=== PATIENT | male | born 1995 | race Caucasian/White ===

== ENCOUNTER 2017-12-08 16:36 | Inpatient (IN) | payer SELFPAY ==
--- NOTE | 2017-12-08 18:28 | ER Document Report ---
ED Medical Screen (RME) - General Chief Complaint: Knee Pain Stated Complaint: KNEE SWELLING Time Seen by Provider: 12/08/17 18:16 TRAVEL OUTSIDE OF THE [place] IN LAST 30 DAYS: No - HPI Notes: 12/08/17 18:25 Patient is a 22-year-old male no significant past medical history who presents to the ED complaining of left knee swelling, redness, purulent discharge, and left lower leg swelling 1-2 days. Patient states that he noticed the redness and swelling yesterday, and the wound began draining today. Denies any headache, fever, URI, sore throat, chest pain, palpitations, syncope , cough, shortness of breath, wheeze, dyspnea, abdominal pain, nausea/vomiting/ diarrhea, urinary retention, dysuria, hematuria, loss of control of bowel or bladder, numbness/tingling, muscle paralysis/weakness. I have treated and performed a rapid initial assessment of this patient. A comprehensive ED assessment and evaluation of the patient, analysis of test results and completion of medical decision making process will be conducted by additional ED providers. PHYSICAL EXAMINATION: GENERAL: Well-appearing, well-nourished and in no acute distress. A&Ox4. Answers questions appropriately. LUNGS: Breath sounds clear to auscultation bilaterally and equal. No wheezes rales or rhonchi. HEART: Regular rate and rhythm without murmurs, rubs, gallops. Lt knee: + erythema, fluctuance, swelling, warmth, and tenderness. + purulent discharge. Extremities: 1+ pitting edema LLE below the knee. NEUROLOGICAL: Normal speech, normal gait. PSYCH: Normal mood, normal affect. - Related Data Allergies/Adverse Reactions: No Known Allergies Allergy (Verified 12/08/17 16:37) Past Medical History - Social History Chew tobacco use (# tins/day): No Frequency of alcohol use: Social Drug Abuse: None Renal/ Medical History: Denies: Hx Peritoneal Dialysis Physical Exam - Vital signs Vitals: Temp Pulse Resp BP Pulse Ox 98.0 F 96 20 144/67 H 97 12/08/17 16:43 12/08/17 16:43 12/08/17 16:43 12/08/17 16:43 12/08/17 16:43 Course - Vital Signs Vital signs: Temp Pulse Resp BP Pulse Ox 98.0 F 96 20 144/67 H 97 12/08/17 16:43 12/08/17 16:43 12/08/17 16:43 12/08/17 16:43 12/08/17 16:43
--- NOTE | 2017-12-08 19:04 | RADIOLOGY REPORT (SQ) ---
EXAM DESCRIPTION: KNEE LEFT 4 VIEW COMPLETED DATE/TIME: 12/08/2017 6:56 pm REASON FOR STUDY: left knee erythema, swelling, abscess COMPARISON: None. NUMBER OF VIEWS: Four views. TECHNIQUE: AP, lateral, and both oblique radiographic images acquired of the left knee. LIMITATIONS: None. FINDINGS: MINERALIZATION: Normal. BONES: No acute fracture or dislocation. No worrisome bone lesions. JOINT: No effusion. SOFT TISSUES: Prepatellar soft tissue swelling. OTHER: No other significant finding. IMPRESSION: Prepatellar soft tissue swelling. No osseous abnormality. TECHNICAL DOCUMENTATION: JOB ID: [id number] [employer]- All Rights Reserved Reading location - IP/workstation name: [email or web address]
[2017-12-08 20:03] LABS: ABSOLUTE BASOPHILS # (AUTO) 0.1 10^3/uL (0.0-0.2); ABSOLUTE EOSINOPHILS # (AUTO) 0.5 10^3/uL (0.0-0.6); ABSOLUTE LYMPHOCYTES (AUTO) 2.6 10^3/uL (0.5-4.7); ABSOLUTE MONOCYTES (AUTO) 1.2 10^3/uL (0.1-1.4); ABSOLUTE NEUT (AUTO) 9.2 10^3/uL (1.7-8.2); BASOPHILS % (AUTO) 0.6 % (0-2); EOSINOPHILS % (AUTO) 3.5 % (0-6); HEMATOCRIT 48.8 % (37.9-51.0); HEMOGLOBIN 16.9 g/dL (13.5-17.0); MEAN CORPUSCULAR HEMOGLOBIN 30.6 pg (27.0-33.4); MEAN CORPUSCULAR HGB CONC 34.6 g/dL (32.0-36.0); MEAN CORPUSCULAR VOLUME 88 fl (80-97); MONOCYTES % (AUTO) 9.1 % (3-13); RED BLOOD COUNT 5.53 10^6/uL (4.35-5.55); RED CELL DISTRIBUTION WIDTH 12.5 % (11.5-14.0); SEGMENTED NEUTROPHILS % (AUTO) 67.8 % (42-78); TOTAL CELLS COUNTED % (AUTO) 100 %; WHITE BLOOD COUNT 13.6 10^3/uL (4.0-10.5)
[2017-12-08 20:27] LABS: PLATELET COUNT 340 10^3/uL (150-450)
[2017-12-08 20:40] LABS: ERYTHROCYTE SEDIMENTATION RATE 26 mm/hr (0-15)
[2017-12-08] MEDS ORDERED: KETOROLAC TROMETHAMINE INJ/PF 30 MG/1 ML SDV IV ONE (20:58)
[2017-12-08] MEDS ORDERED: MORPHINE SULFATE 10 MG/ML INJ IV PRN (20:58)
[2017-12-08] MEDS ORDERED: RINGERS SOLUTION,LACTATED 1,000 ML IV ONE (20:59)
[2017-12-08 21:18] LABS: ALANINE AMINOTRANSFERASE 28 U/L (21-72); ALBUMIN 4.4 g/dL (3.5-5.0); ALKALINE PHOSPHATASE 63 U/L (38-126); ANION GAP 12 (5-19); ASPARTATE AMINO TRANSFERASE 22 U/L (17-59); BILIRUBIN,DIRECT 0.4 mg/dL (0.0-0.4); BILIRUBIN,TOTAL 0.5 mg/dL (0.2-1.3); BLOOD UREA NITROGEN 13 mg/dL (7-20); C-REACTIVE PROTEIN 33.5 mg/L (<10.0); CALCIUM 9.6 mg/dL (8.4-10.2); CARBON DIOXIDE 28 mmol/L (22-30); CHLORIDE 102 mmol/L (98-107); GLUCOSE 93 mg/dL (75-110); POTASSIUM 4.6 mmol/L (3.6-5.0); SODIUM 141.8 mmol/L (137-145); TOTAL PROTEIN 7.4 g/dL (6.3-8.2)
--- NOTE | 2017-12-08 21:44 | RADIOLOGY REPORT (SQ) ---
CT LOWER EXTREMITY WITH IV CONTRAST EXAM DATE: 12/08/2017 20:59 HISTORY: Prepatellar tenderness. Evaluate for abscess. COMPARISON: Radiographs from earlier the same day. . TECHNIQUE: CT scan of the left knee. This exam was performed according to our departmental dose-optimization program, which includes automated exposure control, adjustment of the mA and/or kV according to patient size and/or use of iterative reconstruction technique. FINDINGS: Approximately 2.4 x 1.2 x 3.0 cm collection in the prepatellar soft tissues. Diffuse subcutaneous edema overlying the prepatellar region. No acute fracture or malalignment. Joint spaces are preserved. Fragmentation of the superolateral patella consistent with normal variant (bipartite patella). No knee joint effusion. Visualized muscles and tendons are grossly intact. No Apple's cyst. IMPRESSION: 3 cm focal collection in the prepatellar soft tissues. Differential includes prepatellar abscess, prepatellar bursitis, or prepatellar hematoma.
[2017-12-08] MEDS ORDERED: HYDROMORPHONE HCL INJ/PF 2 MG/ML AMPULE ONE (22:06)
[2017-12-08] MEDS: HYDROMORPHONE HCL INJ/PF 2 MG/ML AMPULE IV PRN (22:10)
[2017-12-08] MEDS ORDERED: VANCOMYCIN HCL INJ 1000 MG VIAL IV ONE (22:24)
[2017-12-08] MEDS ORDERED: CEFTRIAXONE INJ 1000 MG VIAL IV ONE (22:24)
--- NOTE | 2017-12-08 22:29 | ER Document Report ---
ED General - General Chief Complaint: Knee Pain Stated Complaint: KNEE SWELLING Time Seen by Provider: 12/08/17 18:16 Notes: Patient is a 22-year-old male without past medical history, current everyday smoker who presents with 36 hours of progressively worsening pain and swelling over his left patella now with extending erythema down to the level of his ankle as well as extending up along his thigh. He states that he believes the area started as a potential spider bite but never actually saw spider bite the area. He has noted purulent drainage from an opening over his patellar surface on the left. He notes a severe, throbbing, constant pain to the area. Touching the area or bending his knee worsens the pain. Nothing improves the pain. He denies any history of similar symptoms in the past. He has not seen his general doctor regarding today's concerns. He denies any fever or constitutional symptoms. TRAVEL OUTSIDE OF THE [place] IN LAST 30 DAYS: No - Related Data Allergies/Adverse Reactions: No Known Allergies Allergy (Verified 12/08/17 16:37) Past Medical History - General Information source: Patient - Social History Smoking Status: Current Every Day Smoker Cigarette use (# per day): Yes - 1 pack per day Chew tobacco use (# tins/day): No Smoking Education Provided: Yes - Smoking cessation counseling was provided for 4 minutes at the bedside Frequency of alcohol use: Social Drug Abuse: None Family History: Reviewed & Not Pertinent Patient has suicidal ideation: No Patient has homicidal ideation: No Renal/ Medical History: Denies: Hx Peritoneal Dialysis Review of Systems - Review of Systems Notes: Constitutional: Negative for fever. HENT: Negative for sore throat. Eyes: Negative for visual changes. Cardiovascular: Negative for chest pain. Respiratory: Negative for shortness of breath. Gastrointestinal: Negative for abdominal pain, vomiting or diarrhea. Genitourinary: Negative for dysuria. Musculoskeletal: Negative for back pain. Skin: Positive for rash. Neurological: Negative for headaches, weakness or numbness. 10 point ROS negative except as marked above and in HPI. Physical Exam - Vital signs Vitals: Temp Pulse Resp BP Pulse Ox 98.0 F 96 20 144/67 H 97 12/08/17 16:43 12/08/17 16:43 12/08/17 16:43 12/08/17 16:43 12/08/17 16:43 Interpretation: Normal Notes: PHYSICAL EXAMINATION: GENERAL: Appears moderately uncomfortable but in no acute distress HEAD: Atraumatic, normocephalic. EYES: Pupils equal round and reactive to light, extraocular movements intact, sclera anicteric, conjunctiva are normal. ENT: nares patent, oropharynx clear without exudates. Moist mucous membranes. NECK: Normal range of motion, supple without lymphadenopathy LUNGS: Breath sounds clear to auscultation bilaterally and equal. No wheezes rales or rhonchi. HEART: Regular rate and rhythm without murmurs ABDOMEN: Soft, nontender, normoactive bowel sounds. No guarding, no rebound. No masses appreciated. EXTREMITIES: Full flexion to 90 of the left knee actively. There is a palpable , fluctuant area over the lateral surface of the patella. No joint effusion. NEUROLOGICAL: No focal neurological deficits. Moves all extremities spontaneously and on command. PSYCH: Normal mood, normal affect. SKIN: Warm, Dry, normal turgor, there is a streaking erythema extending from the patellar surface down to the level of the ankle and also extending approximately 4 cm up the lateral thigh on the left side. Course - Re-evaluation Re-evalutation: 12/08/17 22:27 Patient presents with a prepatellar abscess on the left without evidence of a septic joint on exam with a rapidly spreading synovitis over the almost entirety of the distal lower extremity and tracking up 4 cm on the proximal aspect of the extremity above the knee. The patient is able to fully flex the knee to 90 without assistance. There is no joint effusion. CT scan of the leg does not show any evidence of an infection outside of the area that is noted on exam. An incision and drainage was performed with extraction of approximately 5 mL's of pus. The wound was then irrigated. The patient has been started on vancomycin and ceftriaxone. Given the rapid progression of the cellulitis as well as that it is overlying the joint space I do not believe the patient is an appropriate candidate for outpatient in a box. I discussed with the inpatient hospitalist who has accepted for admission. - Vital Signs Vital signs: Temp Pulse Resp BP Pulse Ox 98.5 F 75 16 135/58 H 96 12/08/17 23:37 12/08/17 23:37 12/08/17 23:37 12/08/17 23:37 12/08/17 23:37 - Laboratory Result Diagrams: 12/08/17 18:45 12/08/17 20:35 Laboratory results interpreted by me: 12/08/17 12/08/17 18:45 20:35 WBC 13.6 H Absolute Neutrophils 9.2 H ESR 26 H C-Reactive Protein 33.5 H - Diagnostic Test Radiology reviewed: Reports reviewed Discharge - Discharge Clinical Impression: Abscess of left knee, Left leg cellulitis Condition: Fair Disposition: ADMITTED INPATIENT Admitting Provider: Hospitalist Unit Admitted: Medical Floor
[2017-12-09] MEDS: HYDROMORPHONE HCL INJ/PF 2 MG/ML AMPULE IV PRN ×2 (00:14→03:49)
[2017-12-09] MEDS ORDERED: ACETAMINOPHEN 325 MG TABLET PO PRN (00:16)
[2017-12-09] MEDS ORDERED: MAG HYDROX/AL HYDROX/SIMETH SUSP 30 ML UDCUP PO PRN (00:16)
[2017-12-09] MEDS ORDERED: TEMAZEPAM 15 MG CAPSULE PO PRN (00:16)
[2017-12-09] MEDS ORDERED: PROMETHAZINE HCL INJ 25 MG/1 ML VIAL IV PRN (00:16)
[2017-12-09] MEDS: CLINDAMYCIN 600 MG/D5W RTU 600 MG/50 ML RTUPB IV SCH ×2 (01:31→11:10)
--- NOTE | 2017-12-09 01:41 | PDOC H&P ---
History of Present Illness Admission Date/PCP: 12/08/17 22:40 Patient complains of: Left lower extremity pain History of Present Illness: XI ANYAA is a 22 year old male who presents to the emergency department with a prepatellar abscess on the left lower extremity. Patient tells me that Tuesday he was at work in the morning around 8 AM and he felt left knee pain he did not pay attention and around 4:30 PM he noticed his left knee red, swollen, he put some ice and raise his leg. His knee was very swollen and he noticed a small skin breakdown with purulent secretion, patient was 10/10 in intensity, he was unable to walk secondary to 8. Denies fever, chills, nausea, vomiting, shortness of breath or chest pain. He does not know what happened, he believed that he has spider bite but he has not seen any spiders. In the emergency department he underwent incision and drainage, he is erythema is largely extended to the leg reason for which felt safe to give the patient for IV antibiotics. IV Rocephin and IV vancomycin given in the ED. Past Medical History Medical History: None Past Surgical History Past Surgical History: Reports: None Social History Smoking Status: Current Every Day Smoker - From 5 cigarettes to 1 pack per day Frequency of Alcohol Use: Social Hx Recreational Drug Use: Yes Drugs: Marijuana Family History Family History: Father on his 40s of myocardial infarction, he used to do crack cocaine. Mother of heroin overdose on her 40s Parental Family History Reviewed: Yes Children Family History Reviewed: NA Sibling(s) Family History Reviewed.: NA Medication/Allergy Allergies/Adverse Reactions: No Known Allergies Allergy (Verified 12/08/17 16:37) Review of Systems Review of Systems: As outlined in the HPI, others negative Physical Exam Vital Signs: Temp Pulse Resp BP Pulse Ox 98.5 F 75 16 135/58 H 96 12/08/17 23:37 12/08/17 23:37 12/08/17 23:37 12/08/17 23:37 12/08/17 23:37 Additional comments: General appearance: Well-developed, well-nourished, alert and cooperative, and appears to be in no acute distress Head: Normocephalic Eyes: PEERL, EOMI, vision is grossly intact. Ears: External auditory canal and tympanic membranes clear, hearing grossly intact. Nose: No nasal discharge. Throat: Oral cavity and pharynx normal. No inflammation, swelling, exudate or lesions. Neck: Neck supple, nontender without lymphadenopathy, masses or thyromegaly. Cardiac: Normal S1 and S2. No S3, S4 or murmurs. Rhythm is regular. There is no peripheral edema, cyanosis or pallor. Extremities are warm and well perfused. Capillary refill is less than 2 seconds. No carotid bruits. Lungs: Clear to auscultation and percussion without rales, rhonchi, wheezing or diminished breath sounds. Not using accessory muscles. Abdomen: Positive bowel sounds. Soft. Nondistended, nontender. No guarding or rebound. No masses. No hepatosplenomegaly Extremities: Left lower extremity with a dressing around his knee, erythema and swelling going down to his foot and to mid tight, no varicosities. Full range of motion of the left knee Neurological: Cranial nerves II through XII grossly intact. Strength and sensation symmetric and intact throughout. Reflexes 2+ throughout. Skin: Skin normal color, texture and turgor with no lesions or eruptions, warm and dry. Psychiatric: The mental examination revealed the patient was oriented to person , place, and time. The patient was able to demonstrate good judgment on recent , without hallucinations, abnormal affect or abnormal behaviors. Results Laboratory Results: 12/08/17 12/08/17 18:45 20:35 WBC 13.6 H RBC 5.53 Hgb 16.9 Hct 48.8 MCV 88 MCH 30.6 MCHC 34.6 RDW 12.5 Plt Count 340 Seg Neutrophils % 67.8 Lymphocytes % 19.0 Monocytes % 9.1 Eosinophils % 3.5 Basophils % 0.6 Absolute Neutrophils 9.2 H Absolute Lymphocytes 2.6 Absolute Monocytes 1.2 Absolute Eosinophils 0.5 Absolute Basophils 0.1 ESR 26 H Sodium 141.8 Potassium 4.6 Chloride 102 Carbon Dioxide 28 Anion Gap 12 BUN 13 Creatinine 1.10 Est GFR ( Amer) > 60 Est GFR (Non-Af Amer) > 60 Glucose 93 Calcium 9.6 Total Bilirubin 0.5 Direct Bilirubin 0.4 AST 22 ALT 28 Alkaline Phosphatase 63 C-Reactive Protein 33.5 H Total Protein 7.4 Albumin 4.4 Impressions: Knee X-Ray 12/08/17 18:24 IMPRESSION: Prepatellar soft tissue swelling. No osseous abnormality. Lower Extremity CT 12/08/17 20:59 IMPRESSION: 3 cm focal collection in the prepatellar soft tissues. Differential includes prepatellar abscess, prepatellar bursitis, or prepatellar hematoma. Assessment & Plan - Diagnosis (1) Abscess of left knee Is this a current diagnosis for this admission?: Yes Plan: Left knee abscess/prepatellar with surrounding cellulitis, status post I&D in the ED, decided to keep him in the hospital as per the extensive cellulitis with rapid development. IV vancomycin and IV Rocephin given in the emergency department, doubt septic arthritis but I will place an orthopedic consultation for evaluation and further recommendations. In the meantime I will continue with IV clindamycin. Wound culture has been sent please follow identification and sensitivity as well as for blood cultures. He will be on p.o. as needed pain medication and IV Toradol as needed. IV antiemetics as needed. - Time Time Spent: 30 to 50 Minutes - Inpatient Certification Based on my medical assessment, after consideration of the patient's comorbidities, presenting symptoms, or acuity I expect that the services needed warrant INPATIENT care.: Yes I certify that my determination is in accordance with my understanding of Medicare's requirements for reasonable and necessary INPATIENT services [42 CFR 412.3e].: Yes Medical Necessity: Need for IV Antibiotics
[2017-12-09] MEDS ORDERED: VANCOMYCIN HCL INJ 1000 MG VIAL IV ONE (04:05)
[2017-12-09] MEDS ORDERED: DIPHENHYDRAMINE HCL 50 MG/ML VIAL ONE (06:37)
[2017-12-09] MEDS: OXYCODONE-ACETAMINOPHEN 5-325 MG TABLET PO PRN ×3 (06:40→22:19)
--- NOTE | 2017-12-09 06:40 | PDOC CONSULTATION ---
Consultation Consult Date: 12/09/17 Consult reason:: Left prepatellar septic bursitis History of Present Illness Admission Date/PCP: 12/08/17 22:40 History of Present Illness: XI ANAYA is a 22 year old male Patient is a 22-year-old white male with a noncontributory past medical history who presented to the emergency room with increasing pain, swelling, and erythema about the left knee. Patient was diagnosed with a septic prepatellar bursitis and underwent an I&D in the emergency room is now started on empiric antibiotics. Orthopedics is consulted for additional potential surgical management Past Medical History Cardiac Medical History: Reports: None Past Surgical History Past Surgical History: Reports: None Social History Information Source: Patient, [facility] Records Smoking Status: Current Every Day Smoker Frequency of Alcohol Use: Social Hx Recreational Drug Use: Yes Drugs: Marijuana Family History Family History: Reviewed & Not Pertinent Parental Family History Reviewed: No Children Family History Reviewed: No Sibling(s) Family History Reviewed.: No Medication/Allergy Allergies/Adverse Reactions: No Known Allergies Allergy (Verified 12/08/17 16:37) Review of Systems All systems: as per [facility] Physical Exam Vital Signs: Temp Pulse Resp BP Pulse Ox 36.9 C 75 16 135/58 H 96 12/08/17 23:37 12/08/17 23:37 12/08/17 23:37 12/08/17 23:37 12/08/17 23:37 Intake & Output 12/07/17 12/08/17 12/09/17 06:59 06:59 06:59 Intake Total 50 Balance 50 General appearance: PRESENT: no acute distress, mild distress Head exam: PRESENT: normocephalic Respiratory exam: PRESENT: unlabored Cardiovascular exam: PRESENT: RRR Pulses: PRESENT: +1 pedal pulses bilateral Vascular exam: PRESENT: normal capillary refill GI/Abdominal exam: PRESENT: soft Rectal exam: PRESENT: deferred Extremities exam: PRESENT: other - Left prepatellar bursa status post I&D in the emergency room. Now with surrounding erythema and scant serosanguineous drainage. Neurological exam: PRESENT: alert, awake, oriented to person, oriented to place , oriented to time, oriented to situation. ABSENT: motor sensory deficit Skin exam: PRESENT: dry, intact, warm. ABSENT: cyanosis, rash Results Impressions: Knee X-Ray 12/08/17 18:24 IMPRESSION: Prepatellar soft tissue swelling. No osseous abnormality. Lower Extremity CT 12/08/17 20:59 IMPRESSION: 3 cm focal collection in the prepatellar soft tissues. Differential includes prepatellar abscess, prepatellar bursitis, or prepatellar hematoma. Status: Imported from PACS Assessment & Plan - Diagnosis (1) Septic prepatellar bursitis of left knee Is this a current diagnosis for this admission?: Yes Plan: Patient status post I&D in the emergency room which may be sufficient. Concur with administration of IV antibiotics and continued observation. - Time Time Spent: 50 to 70 Minutes Anticipated discharge: Home with Homehealth Within: Other
[2017-12-09 07:38] LABS: ABSOLUTE EOSINOPHILS # (AUTO) 0.3 10^3/uL (0.0-0.6); ABSOLUTE LYMPHOCYTES (AUTO) 1.8 10^3/uL (0.5-4.7); ABSOLUTE MONOCYTES (AUTO) 0.8 10^3/uL (0.1-1.4); ABSOLUTE NEUT (AUTO) 5.1 10^3/uL (1.7-8.2); BASOPHILS % (AUTO) 0.4 % (0-2); EOSINOPHILS % (AUTO) 3.3 % (0-6); HEMATOCRIT 42.9 % (37.9-51.0); LYMPHOCYTES % (AUTO) 22.6 % (13-45); MEAN CORPUSCULAR HEMOGLOBIN 30.7 pg (27.0-33.4); MEAN CORPUSCULAR HGB CONC 34.9 g/dL (32.0-36.0); MEAN CORPUSCULAR VOLUME 88 fl (80-97); MONOCYTES % (AUTO) 10.4 % (3-13); PLATELET COUNT 278 10^3/uL (150-450); RED BLOOD COUNT 4.88 10^6/uL (4.35-5.55); RED CELL DISTRIBUTION WIDTH 12.3 % (11.5-14.0); SEGMENTED NEUTROPHILS % (AUTO) 63.3 % (42-78); TOTAL CELLS COUNTED % (AUTO) 100 %; WHITE BLOOD COUNT 8.1 10^3/uL (4.0-10.5)
[2017-12-09 08:00] LABS: ANION GAP 9 (5-19); BLOOD UREA NITROGEN 12 mg/dL (7-20); CALCIUM 8.8 mg/dL (8.4-10.2); CARBON DIOXIDE 28 mmol/L (22-30); CHLORIDE 104 mmol/L (98-107); GLUCOSE 78 mg/dL (75-110); POTASSIUM 4.1 mmol/L (3.6-5.0); SODIUM 141.1 mmol/L (137-145)
[2017-12-09] MEDS: ENOXAPARIN SODIUM INJ 40 MG/0.4 ML DISP.SYRIN SUBCUT SCH (11:11)
[2017-12-09] MEDS: KETOROLAC TROMETHAMINE INJ/PF 30 MG/1 ML SDV IV PRN ×2 (11:22→20:03)
[2017-12-09] MEDS: TRAMADOL HCL 50 MG TABLET PO PRN (18:17)
--- NOTE | 2017-12-09 20:24 | PDOC PROGRESS REPORT ---
Subjective Progress Note for:: 12/09/17 Subjective:: DANIEL ANAYA is a 22 year old male who presents to the emergency department with a left prepatellar abscess. He admits that while at work (about 4:30 PM on 12/07/17) he noticed his left knee was red, swollen, and mildly painful so he treated it with ice and elevation but had no improvement. Over the next 24 hours his knee gradually became severely swollen and severely painful with a small area of skin breakdown and purulent discharge over the kneecap. Efforts at walking resulted in worsening the already severe, throbbing, aching pressure pain of the right anterior knee. The pain did not radiate and he denies prior similar events. He further denies fever, chills, nausea, vomiting, dyspnea and chest pain. He has not identified any causative injury or event but is suspicious that he may have been bitten by a spider. In the emergency department he underwent incision and drainage, and stated on IV antibiotics (Rocephin and vancomycin). He was admitted and the antibiotic regiment was changed to IV clindamycin. 12/09/17: Daniel feels a little better today but the knee is still moderately painful especially with flexion. He denies fever, chills, nausea, vomiting and diarrhea. Reason For Visit: Swollen and painful left knee Physical Exam Vital Signs: Temp Pulse Resp BP Pulse Ox 98.5 F 75 18 127/67 H 97 12/09/17 19:22 12/09/17 19:22 12/09/17 19:22 12/09/17 19:22 12/09/17 19:22 Intake & Output 12/08/17 12/09/17 12/10/17 06:59 06:59 06:59 Intake Total 50 Balance 50 Weight 108.862 kg General appearance: PRESENT: no acute distress, cooperative, well-developed, well-nourished Head exam: PRESENT: atraumatic, normocephalic Eye exam: PRESENT: conjunctiva pink. ABSENT: scleral icterus Ear exam: PRESENT: normal external ear exam. ABSENT: drainage Mouth exam: PRESENT: neck supple, tongue midline Neck exam: PRESENT: full ROM. ABSENT: tracheal deviation Respiratory exam: PRESENT: clear to auscultation jose, symmetrical, unlabored Cardiovascular exam: PRESENT: RRR. ABSENT: clicks, diastolic murmur, gallop, rubs, systolic murmur Pulses: PRESENT: normal carotid pulses, normal radial pulses, normal dorsalis pedis pul Vascular exam: PRESENT: normal capillary refill. ABSENT: pallor GI/Abdominal exam: PRESENT: normal bowel sounds, soft. ABSENT: distended, tenderness Rectal exam: PRESENT: deferred Extremities exam: PRESENT: tenderness - left prepatellar region with local erythema, edema and induration, +1 edema - below the left knee, other - decreased ROM left knee secondary to pain Neurological exam: PRESENT: alert, awake, oriented to person, oriented to place , oriented to time, oriented to situation, CN II-XII grossly intact. ABSENT: motor sensory deficit Psychiatric exam: PRESENT: appropriate affect, normal mood Skin exam: PRESENT: other - see left knee description above. ABSENT: jaundice, rash, urticaria Results Laboratory Results: 12/09/17 07:00 12/09/17 07:00 12/09/17 12/09/17 07:00 07:00 WBC 8.1 RBC 4.88 Hgb 15.0 Hct 42.9 MCV 88 MCH 30.7 MCHC 34.9 RDW 12.3 Plt Count 278 Seg Neutrophils % 63.3 Lymphocytes % 22.6 Monocytes % 10.4 Eosinophils % 3.3 Basophils % 0.4 Absolute Neutrophils 5.1 Absolute Lymphocytes 1.8 Absolute Monocytes 0.8 Absolute Eosinophils 0.3 Absolute Basophils 0.0 Sodium 141.1 Potassium 4.1 Chloride 104 Carbon Dioxide 28 Anion Gap 9 BUN 12 Creatinine 0.99 Est GFR ( Amer) > 60 Est GFR (Non-Af Amer) > 60 Glucose 78 Calcium 8.8 Impressions: Knee X-Ray 12/08/17 18:24 IMPRESSION: Prepatellar soft tissue swelling. No osseous abnormality. Lower Extremity CT 12/08/17 20:59 IMPRESSION: 3 cm focal collection in the prepatellar soft tissues. Differential includes prepatellar abscess, prepatellar bursitis, or prepatellar hematoma. Assessment & Plan - Diagnosis (1) Prepatellar abscess Is this a current diagnosis for this admission?: Yes Plan: Continue IV antibiotics with Cleocin 900 mg q8hr. Supportive and symptomatic treatment as needed. - Time Time Spent with patient: 35 or more minutes Medications reviewed and adjusted accordingly: Yes Anticipated discharge: Home Within: within 72 hours Disposition: Admit to general medical floor.
[2017-12-09] MEDS: CLINDAMYCIN 900 MG/D5W RTU 900 MG/50 ML RTUPB IV SCH (22:27)
[2017-12-10] MEDS: KETOROLAC TROMETHAMINE INJ/PF 30 MG/1 ML SDV IV PRN ×3 (04:23→21:44)
[2017-12-10] MEDS: TRAMADOL HCL 50 MG TABLET PO PRN ×2 (05:46→16:46)
[2017-12-10] MEDS: CLINDAMYCIN 900 MG/D5W RTU 900 MG/50 ML RTUPB IV SCH (05:46)
[2017-12-10 07:14] LABS: ABSOLUTE BASOPHILS # (AUTO) 0.1 10^3/uL (0.0-0.2); ABSOLUTE EOSINOPHILS # (AUTO) 0.4 10^3/uL (0.0-0.6); ABSOLUTE LYMPHOCYTES (AUTO) 2.2 10^3/uL (0.5-4.7); ABSOLUTE MONOCYTES (AUTO) 0.7 10^3/uL (0.1-1.4); ABSOLUTE NEUT (AUTO) 3.8 10^3/uL (1.7-8.2); BASOPHILS % (AUTO) 0.7 % (0-2); EOSINOPHILS % (AUTO) 5.5 % (0-6); HEMATOCRIT 41.4 % (37.9-51.0); HEMOGLOBIN 14.3 g/dL (13.5-17.0); LYMPHOCYTES % (AUTO) 30.6 % (13-45); MEAN CORPUSCULAR HEMOGLOBIN 30.7 pg (27.0-33.4); MEAN CORPUSCULAR HGB CONC 34.6 g/dL (32.0-36.0); MEAN CORPUSCULAR VOLUME 89 fl (80-97); MONOCYTES % (AUTO) 9.8 % (3-13); PLATELET COUNT 271 10^3/uL (150-450); RED BLOOD COUNT 4.65 10^6/uL (4.35-5.55); SEGMENTED NEUTROPHILS % (AUTO) 53.4 % (42-78); TOTAL CELLS COUNTED % (AUTO) 100 %; WHITE BLOOD COUNT 7.2 10^3/uL (4.0-10.5)
[2017-12-10 07:30] LABS: ANION GAP 5 (5-19); BLOOD UREA NITROGEN 15 mg/dL (7-20); CALCIUM 8.5 mg/dL (8.4-10.2); CARBON DIOXIDE 29 mmol/L (22-30); CHLORIDE 107 mmol/L (98-107); GLUCOSE 89 mg/dL (75-110); POTASSIUM 4.2 mmol/L (3.6-5.0)
--- NOTE | 2017-12-10 08:00 | PDOC PROGRESS REPORT ---
Subjective Progress Note for:: 12/10/17 Reason For Visit: LLE CELLULITIS 22-year-old white male with a left prepatellar septic bursitis status post I&D in the emergency room and on IV antibiotics currently. Patient reports overall generalized clinical improvement Physical Exam Vital Signs: Temp Pulse Resp BP Pulse Ox 36.4 C 78 18 117/51 L 98 12/10/17 03:30 12/10/17 03:30 12/10/17 03:30 12/10/17 03:30 12/10/17 03:30 Intake & Output 12/09/17 12/10/17 12/11/17 06:59 06:59 06:59 Intake Total 50 950 Balance 50 950 Weight 104.916 kg Extremities exam: PRESENT: other - Continues to have scant purulent drainage which has not come through the dressing. Overall erythema and induration surrounding the site of I&D seems to be reduced. Passive range of motion and active range of motion are significantly improved from yesterday. Minimal pedal edema. Distal neurovascular examination is intact. Results Laboratory Results: 12/10/17 05:26 12/10/17 05:26 12/09/17 12/10/17 12/10/17 07:00 05:26 05:26 WBC 7.2 RBC 4.65 Hgb 14.3 Hct 41.4 MCV 89 MCH 30.7 MCHC 34.6 RDW 12.0 Plt Count 271 Seg Neutrophils % 53.4 Lymphocytes % 30.6 Monocytes % 9.8 Eosinophils % 5.5 Basophils % 0.7 Absolute Neutrophils 3.8 Absolute Lymphocytes 2.2 Absolute Monocytes 0.7 Absolute Eosinophils 0.4 Absolute Basophils 0.1 Sodium 141.1 141.0 Potassium 4.1 4.2 Chloride 104 107 Carbon Dioxide 28 29 Anion Gap 9 5 BUN 12 15 Creatinine 0.99 0.98 Est GFR ( Amer) > 60 > 60 Est GFR (Non-Af Amer) > 60 > 60 Glucose 78 89 Calcium 8.8 8.5 Impressions: Knee X-Ray 12/08/17 18:24 IMPRESSION: Prepatellar soft tissue swelling. No osseous abnormality. Lower Extremity CT 12/08/17 20:59 IMPRESSION: 3 cm focal collection in the prepatellar soft tissues. Differential includes prepatellar abscess, prepatellar bursitis, or prepatellar hematoma. Assessment & Plan - Diagnosis (1) Septic prepatellar bursitis of left knee Is this a current diagnosis for this admission?: Yes Plan: Seems to be adequately decompressed and resolving - Time Time Spent with patient: 15-24 minutes Anticipated discharge: Home with Homehealth Within: Other
[2017-12-10] MEDS: ENOXAPARIN SODIUM INJ 40 MG/0.4 ML DISP.SYRIN SUBCUT SCH (10:07)
[2017-12-10] MEDS: OXYCODONE-ACETAMINOPHEN 5-325 MG TABLET PO PRN ×2 (10:07→19:52)
[2017-12-10] MEDS ORDERED: CEFAZOLIN INJ 1 GM VIAL IV ONE (12:14)
--- NOTE | 2017-12-10 12:25 | PDOC PROGRESS REPORT ---
Subjective Progress Note for:: 12/10/17 Subjective:: DANIEL ANAYA is a 22 year old male who presents to the emergency department with a left prepatellar abscess. He admits that while at work (about 4:30 PM on 12/07/17) he noticed his left knee was red, swollen, and mildly painful so he treated it with ice and elevation but had no improvement. Over the next 24 hours his knee gradually became severely swollen and severely painful with a small area of skin breakdown and purulent discharge over the kneecap. Efforts at walking resulted in worsening the already severe, throbbing, aching pressure pain of the right anterior knee. The pain did not radiate and he denies prior similar events. He further denies fever, chills, nausea, vomiting, dyspnea and chest pain. He has not identified any causative injury or event but is suspicious that he may have been bitten by a spider. In the emergency department he underwent incision and drainage, and stated on IV antibiotics (Rocephin and vancomycin). He was admitted and the antibiotic regiment was changed to IV clindamycin. 12/09/17: Daniel feels a little better today but the knee is still moderately painful especially with flexion. He denies fever, chills, nausea, vomiting and diarrhea. 12/10/17: Daniel again feels somewhat improved today his knee is draining less and he is having good control of his pain. He still has painful flexion of the knee. He had his dressing changed today and it went quite well he felt the knee looked like it was improving and indeed his knee does show significantly less erythema today than it did yesterday. His appetite remains strong and he is eager to get home and be with his family. His culture has grown coagulase-negative staph and he will be placed on oral antibiotics today with the intent of discharging him tomorrow as long as he remains stable. Reason For Visit: LLE CELLULITIS Physical Exam Vital Signs: Temp Pulse Resp BP Pulse Ox 98.1 F 75 16 123/64 98 12/10/17 07:48 12/10/17 07:48 12/10/17 07:48 12/10/17 07:48 12/10/17 07:48 Intake & Output 12/09/17 12/10/17 12/11/17 06:59 06:59 06:59 Intake Total 50 1000 Balance 50 1000 Weight 104.916 kg General appearance: PRESENT: no acute distress, cooperative Head exam: PRESENT: atraumatic, normocephalic Eye exam: PRESENT: conjunctiva pink. ABSENT: conjunctival injection Ear exam: PRESENT: normal external ear exam. ABSENT: drainage Mouth exam: PRESENT: neck supple, tongue midline Neck exam: ABSENT: thyromegaly, tracheal deviation Respiratory exam: PRESENT: clear to auscultation jose, symmetrical, unlabored Cardiovascular exam: PRESENT: RRR. ABSENT: clicks, gallop, rubs Vascular exam: PRESENT: normal capillary refill. ABSENT: pallor GI/Abdominal exam: PRESENT: normal bowel sounds, soft Extremities exam: PRESENT: joint swelling - Left knee, tenderness - Left knee, other - Decreased range of motion left knee secondary to pain. ABSENT: pedal edema Musculoskeletal exam: ABSENT: deformity, dislocation Neurological exam: PRESENT: alert, awake, oriented to person, oriented to place , oriented to time, oriented to situation, CN II-XII grossly intact. ABSENT: motor sensory deficit Psychiatric exam: PRESENT: appropriate affect, normal mood Skin exam: ABSENT: jaundice, rash, urticaria Results Laboratory Results: 12/10/17 05:26 12/10/17 05:26 12/10/17 12/10/17 05:26 05:26 WBC 7.2 RBC 4.65 Hgb 14.3 Hct 41.4 MCV 89 MCH 30.7 MCHC 34.6 RDW 12.0 Plt Count 271 Seg Neutrophils % 53.4 Lymphocytes % 30.6 Monocytes % 9.8 Eosinophils % 5.5 Basophils % 0.7 Absolute Neutrophils 3.8 Absolute Lymphocytes 2.2 Absolute Monocytes 0.7 Absolute Eosinophils 0.4 Absolute Basophils 0.1 Sodium 141.0 Potassium 4.2 Chloride 107 Carbon Dioxide 29 Anion Gap 5 BUN 15 Creatinine 0.98 Est GFR ( Amer) > 60 Est GFR (Non-Af Amer) > 60 Glucose 89 Calcium 8.5 Impressions: Knee X-Ray 12/08/17 18:24 IMPRESSION: Prepatellar soft tissue swelling. No osseous abnormality. Lower Extremity CT 12/08/17 20:59 IMPRESSION: 3 cm focal collection in the prepatellar soft tissues. Differential includes prepatellar abscess, prepatellar bursitis, or prepatellar hematoma. Assessment & Plan - Diagnosis (1) Prepatellar abscess Is this a current diagnosis for this admission?: Yes Plan: Discontinue IV Cleocin in favor of cephalexin administered orally. Culture result reveals Staphylococcus aureus that is coagulase-negative and broadly sensitive to beta-lactam agents. Supportive and symptomatic treatment as needed. - Time Time Spent with patient: 25-34 minutes Medications reviewed and adjusted accordingly: Yes Anticipated discharge: Home Within: within 24 hours
[2017-12-10] MEDS ORDERED: CEFAZOLIN 2 GM/D5W RTU 2 GM/50 ML RTUPB IV ONE (13:00)
[2017-12-10] MEDS: CEPHALEXIN 500 MG CAPSULE PO SCH (18:39)
[2017-12-10] MEDS: PROMETHAZINE HCL 25 MG TABLET PO PRN (21:01)
[2017-12-11] MEDS: CEPHALEXIN 500 MG CAPSULE PO SCH ×3 (01:15→13:22)
[2017-12-11] MEDS: PROMETHAZINE HCL 25 MG TABLET PO PRN ×3 (01:15→13:22)
[2017-12-11] MEDS: TRAMADOL HCL 50 MG TABLET PO PRN ×2 (04:29→13:24)
[2017-12-11] MEDS: OXYCODONE-ACETAMINOPHEN 5-325 MG TABLET PO PRN ×2 (08:10→16:10)
[2017-12-11 08:49] LABS: ABSOLUTE BASOPHILS # (AUTO) 0.1 10^3/uL (0.0-0.2); ABSOLUTE EOSINOPHILS # (AUTO) 0.3 10^3/uL (0.0-0.6); ABSOLUTE LYMPHOCYTES (AUTO) 1.8 10^3/uL (0.5-4.7); ABSOLUTE MONOCYTES (AUTO) 0.5 10^3/uL (0.1-1.4); ABSOLUTE NEUT (AUTO) 2.9 10^3/uL (1.7-8.2); EOSINOPHILS % (AUTO) 4.7 % (0-6); HEMATOCRIT 41.3 % (37.9-51.0); HEMOGLOBIN 14.4 g/dL (13.5-17.0); MEAN CORPUSCULAR HEMOGLOBIN 30.8 pg (27.0-33.4); MEAN CORPUSCULAR HGB CONC 34.8 g/dL (32.0-36.0); MEAN CORPUSCULAR VOLUME 89 fl (80-97); MONOCYTES % (AUTO) 8.9 % (3-13); PLATELET COUNT 251 10^3/uL (150-450); RED BLOOD COUNT 4.67 10^6/uL (4.35-5.55); RED CELL DISTRIBUTION WIDTH 12.1 % (11.5-14.0); SEGMENTED NEUTROPHILS % (AUTO) 52.4 % (42-78); TOTAL CELLS COUNTED % (AUTO) 100 %; WHITE BLOOD COUNT 5.5 10^3/uL (4.0-10.5)
--- NOTE | 2017-12-11 09:55 | PDOC DISCHARGE SUMMARY ---
General - Admit/Disc Date/PCP Admission Date/Primary Care Provider: 12/08/17 22:40 Discharge Date: 12/11/17 - May not return to work until released by Dr. Soto - Discharge Diagnosis (1) Prepatellar abscess Is this a current diagnosis for this admission?: Yes Summary: Left prepatellar abscess was incised and drained in the emergency room. He was treated with IV antibiotics pending culture results. Wound culture revealed coagulase-negative Staphylococcus aureus and treatment with oral antibiotics was initiated using Keflex, which was tolerated well except for mild nausea after taking the oral antibiotic dosage. The nausea was easily treated with Phenergan and resolved. Wound cares for home were instructed by nursing staff. The patient was ready to be discharged to home on 12/11/2017 and will be followed up as an outpatient by Dr. Soto in his office within 1-2 days. - Additional Information Discharge Diet: Regular Discharge Activity: Activity As Tolerated, Other - No work until released for work activity by Dr. Soto Prescriptions: Cephalexin Monohydrate [Keflex 500 mg Capsule] 1,000 mg PO BIDBS 10 Days #40 capsule Ondansetron [Ondansetron Odt] 4 mg PO ACBRKFSTP PRN 10 Days #20 tab.rapdis PRN Reason: Tramadol HCl [Ultram 50 mg Tablet] 50 mg PO Q4HP PRN 5 Days #30 tablet PRN Reason: For Pain Home Medications: Tramadol HCl [Ultram 50 mg Tablet] 50 mg PO Q4HP PRN 5 Days #30 tablet 12/10/17 Cephalexin Monohydrate [Keflex 500 mg Capsule] 1,000 mg PO BIDBS 10 Days #40 capsule 12/11/17 Ondansetron [Ondansetron Odt] 4 mg PO ACBRKFSTP PRN 10 Days #20 tab.rapdis 12/11 Additional Information: House Carpenter: Dr. Alberto Soto for orthopedic surgical evaluation and treatment of the left prepatellar abscess. History of Present Illness History of Present Illness: DANIEL ANAYA is a 22 year old male who presents to the emergency department with a left prepatellar abscess. He admits that while at work (about 4:30 PM on 12/07/17) he noticed his left knee was red, swollen, and mildly painful so he treated it with ice and elevation but had no improvement. Over the next 24 hours his knee gradually became severely swollen and severely painful with a small area of skin breakdown and purulent discharge over the kneecap. Efforts at walking resulted in worsening the already severe, throbbing, aching pressure pain of the right anterior knee. The pain did not radiate and he denies prior similar events. He further denies fever, chills, nausea, vomiting, dyspnea and chest pain. He has not identified any causative injury or event but is suspicious that he may have been bitten by a spider. Hospital Course Hospital Course: In the emergency department he underwent incision and drainage, and stated on IV antibiotics (Rocephin and vancomycin). He was admitted and the antibiotic regiment was changed to IV clindamycin. 12/09/17: Daniel feels a little better today but the knee is still moderately painful especially with flexion. He denies fever, chills, nausea, vomiting and diarrhea. 12/10/17: Daniel again feels somewhat improved today his knee is draining less and he is having good control of his pain. He still has painful flexion of the knee. He had his dressing changed today and it went quite well he felt the knee looked like it was improving and indeed his knee does show significantly less erythema today than it did yesterday. His appetite remains strong and he is eager to get home and be with his family. His culture has grown coagulase-negative staph and he will be placed on oral antibiotics (Keflex) today with the intent of discharging him tomorrow as long as he remains stable. 12/11/17: Daniel is doing quite well with the oral antibiotics with the exception of the nausea that it causes him after taking them. This is been treated with Phenergan quite successfully but he is requesting the use of Zofran when he goes home as Phenergan makes him somewhat sleepy. He denies vomiting, diarrhea , fever and chills. His wound has been draining less than on previous days and it is gradually becoming somewhat less tender. He is looking forward to his discharge later today. Physical Exam Vital Signs: Temp Pulse Resp BP Pulse Ox 97.9 F 65 16 119/56 L 99 12/11/17 03:56 12/11/17 03:56 12/11/17 03:56 12/11/17 03:56 12/11/17 03:56 Intake & Output 12/10/17 12/11/17 12/12/17 06:59 06:59 06:59 Intake Total 1000 510 Balance 1000 510 Weight 104.916 kg 104.1 kg General appearance: PRESENT: no acute distress, cooperative Head exam: PRESENT: atraumatic, normocephalic Eye exam: PRESENT: conjunctiva pink. ABSENT: conjunctival injection Ear exam: PRESENT: normal external ear exam. ABSENT: drainage Mouth exam: PRESENT: moist, neck supple Neck exam: ABSENT: thyromegaly, tracheal deviation Respiratory exam: PRESENT: clear to auscultation jose, symmetrical, unlabored Cardiovascular exam: PRESENT: RRR. ABSENT: clicks, gallop, rubs Vascular exam: PRESENT: normal capillary refill. ABSENT: pallor GI/Abdominal exam: PRESENT: normal bowel sounds, soft Extremities exam: PRESENT: tenderness - Left knee in the prepatellar region with associated unroofed abscess present.. ABSENT: clubbing Musculoskeletal exam: ABSENT: deformity, dislocation Neurological exam: PRESENT: alert, awake, oriented to person, oriented to place , oriented to time, oriented to situation, CN II-XII grossly intact. ABSENT: motor sensory deficit Psychiatric exam: PRESENT: appropriate affect, normal mood Skin exam: PRESENT: other - Left prepatellar abscess as previously noted.. ABSENT: jaundice, rash, urticaria Results Laboratory Results: 12/11/17 07:57 12/10/17 05:26 12/11/17 07:57 WBC 5.5 RBC 4.67 Hgb 14.4 Hct 41.3 MCV 89 MCH 30.8 MCHC 34.8 RDW 12.1 Plt Count 251 Seg Neutrophils % 52.4 Lymphocytes % 33.0 Monocytes % 8.9 Eosinophils % 4.7 Basophils % 1.0 Absolute Neutrophils 2.9 Absolute Lymphocytes 1.8 Absolute Monocytes 0.5 Absolute Eosinophils 0.3 Absolute Basophils 0.1 Impressions: Knee X-Ray 12/08/17 18:24 IMPRESSION: Prepatellar soft tissue swelling. No osseous abnormality. Lower Extremity CT 12/08/17 20:59 IMPRESSION: 3 cm focal collection in the prepatellar soft tissues. Differential includes prepatellar abscess, prepatellar bursitis, or prepatellar hematoma. Qualifiers - * PATIENT BEING DISCHARGED WITH ANY OF THE FOLLOWING DIAGNOSIS: No Plan Time Spent: Greater than 30 Minutes
[2017-12-11 10:01] VITALS: BP 124/55
[2017-12-11] MEDS: ENOXAPARIN SODIUM INJ 40 MG/0.4 ML DISP.SYRIN SUBCUT SCH (13:13)
== END 2017-12-11 17:15 | disposition home or self-care (01) | DRG 558 ==
LOC: ER 16:36 → EH 22:40 → 2N 12-09 18:26
PROVIDERS: ADMIT Internal Medicine; ATTEND Internal Medicine
PROC: 0H9LXZX Drainage of Left Lower Leg Skin, External Approach, Diagnostic (ICD-10-PCS; principal; 2017-12-08)
DX: M71.162 Other infective bursitis, left knee (principal); L03.116 Cellulitis of left lower limb; M25.462 Effusion, left knee; B95.61 Methicillin susceptible Staphylococcus aureus infection as the cause of diseases classified elsewhere; F17.210 Nicotine dependence, cigarettes, uncomplicated; Z71.6 Tobacco abuse counseling
CPT/HCPCS: 36415; 80048; 80053; 85025; 85652; 86140; 87040; 87070; 87077; 87186; 87205; 96361; 96374; 96375; 99285; 99406; J0690; J0696; J1170; J1200; J1650; J1885; J2270; J3370; J3490; J7120

== ENCOUNTER 2018-02-05 20:04 | Emergency (ER) | payer SELFPAY ==
[2018-02-05] MEDS ORDERED: LIDOCAINE 1% INJ (10 MG/ML) 10 ML MDV ONE (21:41)
--- NOTE | 2018-02-05 22:06 | ER Document Report ---
ED General - General Chief Complaint: Abscess Stated Complaint: ABSCESS Time Seen by Provider: 02/05/18 21:34 Notes: Patient is a 22-year-old male with no chronic medical problems who presents with a small abscess over his left patellar surface. She states the area started several days ago, has been getting progressively more painful and swollen over that period of time. Describes as a throbbing, aching, constant pain. Touching the area worsens the pain. Pain. He denies any associated fever or constitutional symptoms. He has not seen his general doctor regarding this concern. TRAVEL OUTSIDE OF THE [place] IN LAST 30 DAYS: No - Related Data Allergies/Adverse Reactions: vancomycin Allergy (Intermediate, Verified 02/05/18 20:27) Facial swelling Past Medical History - General Information source: Patient - Social History Smoking Status: Never Smoker Frequency of alcohol use: None Drug Abuse: None Lives with: Spouse/Significant other Family History: Reviewed & Not Pertinent Patient has suicidal ideation: No Patient has homicidal ideation: No Renal/ Medical History: Denies: Hx Peritoneal Dialysis Psychiatric Medical History: Denies: Hx Depression Review of Systems - Review of Systems Notes: Constitutional: Negative for fever. HENT: Negative for sore throat. Eyes: Negative for visual changes. Cardiovascular: Negative for chest pain. Respiratory: Negative for shortness of breath. Gastrointestinal: Negative for abdominal pain, vomiting or diarrhea. Genitourinary: Negative for dysuria. Musculoskeletal: Negative for back pain. Skin: Positive for abscess of the left knee Neurological: Negative for headaches, weakness or numbness. 10 point ROS negative except as marked above and in HPI. Physical Exam - Vital signs Vitals: Temp Pulse Resp BP Pulse Ox 97.9 F 87 16 136/74 H 98 02/05/18 20:23 02/05/18 20:23 02/05/18 20:23 02/05/18 20:23 02/05/18 20:23 Interpretation: Normal Notes: PHYSICAL EXAMINATION: GENERAL: Well-appearing, well-nourished and in no acute distress. HEAD: Atraumatic, normocephalic. EYES: sclera anicteric, conjunctiva are normal. ENT: Moist mucous membranes. NECK: Normal range of motion LUNGS: Normal work of breathing HEART: 2+ radial pulses bilaterally EXTREMITIES: no pitting or edema. No cyanosis. NEUROLOGICAL: No focal neurological deficits. Moves all extremities spontaneously and on command. PSYCH: Normal mood, normal affect. SKIN: Warm, Dry, normal turgor, small abscess in the central patellar surface of the left knee without surrounding erythema Course - Re-evaluation Re-evalutation: 02/05/18 22:05 Patient presents with a small abscess over the left patellar surface which was incised and drained without any difficulty. No surrounding cellulitis, no limited range of motion. Nothing to suggest septic joint. Patient is able to ambulate without difficulty. Patient has been prescribed chart from sulfamethoxazole as an outpatient. Bleach baths encouraged. No indication for labs or imaging. At this time will discharge with return precautions and follow -up recommendations. Verbal discharge instructions given a the bedside and opportunity for questions given. Medication warnings reviewed. Patient is in agreement with this plan and has verbalized understanding of return precautions and the need for primary care follow-up in the next 24-72 hours. - Vital Signs Vital signs: Temp Pulse Resp BP Pulse Ox 98 F 77 16 128/66 H 99 02/05/18 22:40 02/05/18 22:40 02/05/18 22:40 02/05/18 22:40 02/05/18 22:40 Procedures - Incision and Drainage Left Knee Type: Simple Anesthetic type: 1% Lidocaine mL's of anesthetic: 1 Blade size: 11 I&D procedure: Betadine prep applied Incision Method: Incision made by scalpel Amount/type of drainage: 1 cc purulent drainage Discharge - Discharge Clinical Impression: Abscess of left knee Condition: Good Disposition: HOME, SELF-CARE Additional Instructions: You were seen for an abscess that required drainage. Please clean this area with soap and water twice daily and apply a topical antibiotic. Dress the area after each cleaning. Please return if you develop fever, vomiting, the pain at the site worsens, you notice spreading redness from the area, or you have any other symptoms that are concerning to you. Prescriptions: Sulfamethoxazole/Trimethoprim [Bactrim Ds Tablet] 2 tab PO BID #28 tablet
[2018-02-05 22:41] VITALS: BP 128/66
== END 2018-02-05 22:41 | disposition home or self-care (01) ==
LOC: ER 20:04
DX: L02.416 Cutaneous abscess of left lower limb (principal); Z88.3 Allergy status to other anti-infective agents
CPT/HCPCS: 99283